=== PATIENT | female | born 1965 | race Caucasian/White ===

== ENCOUNTER 2021-08-03 12:05 | Emergency (ER) | payer BC ==
[2021-08-03] MEDS ORDERED: Ketorolac 30 MG/ML SDV IM ONE (12:22)
[2021-08-03] MEDS ORDERED: Take Home: Ketorolac 10 MG Tab, 4 Tab Pack PO ONE (13:35)
== END 2021-08-03 13:52 | disposition home or self-care (01) ==
LOC: VM.ED 12:05
DX: R07.89 Other chest pain (principal); S50.311A Abrasion of right elbow, initial encounter; S80.211A Abrasion, right knee, initial encounter; S90.415A Abrasion, left lesser toe(s), initial encounter; S90.414A Abrasion, right lesser toe(s), initial encounter; S80.811A Abrasion, right lower leg, initial encounter; W18.09XA Striking against other object with subsequent fall, initial encounter; Y92.009 Unspecified place in unspecified non-institutional (private) residence as the place of occurrence of the external cause
CPT/HCPCS: 71046; 71110; 96372; 99283; 99284-25; A9270-GY; J1885